=== PATIENT | female | born 1960 | race Caucasian/White ===

== ENCOUNTER 2019-03-12 09:30 | Inpatient (IN) ==
[~2019-03-12 09:30] MED LIST: ACETAMINOPHEN 500 MG TABLET PO ONE; CELECOXIB 200 MG CAPSULE PO ONE; Gabapentin 600 MG TABLET PO ONE; LIDOCAINE W/ SODIUM BICARB 0.5 ML SYR SUBD ONE; Nasal Sanitizer POPSWAB ampule 3 AMP (Nozin) PREOP DOSE ENOS SCH; PANTOPRAZOLE 20 MG TABLET.DR PO ONE; ceFAZolin Inj 3 GM in Sodium Chloride 0.9% 100 ML IV ONE
[2019-03-12] MEDS ORDERED: Gabapentin 600 MG TABLET PO ONE (11:55)
[2019-03-12] MEDS ORDERED: Lactated Ringers 1,000 ML PRIMARY IV ONE ×2 (11:55→18:45)
[2019-03-12] MEDS ORDERED: Clindamycin 900mg (Premix) 900 MG/50 ML BAG IV ONE ×2 (11:55)
[2019-03-12] MEDS ORDERED: PANTOPRAZOLE 20 MG TABLET.DR PO ONE (11:55)
[2019-03-12] MEDS ORDERED: CELECOXIB 200 MG CAPSULE PO ONE (11:55)
[2019-03-12] MEDS ORDERED: LIDOCAINE W/ SODIUM BICARB 0.5 ML SYR ONE (11:55)
[2019-03-12 13:13] LABS: BILIRUBIN,URINE NEGATIVE (NEG); CLARITY,URINE CLEAR (CLEAR); COLOR,URINE YELLOW (Y); GLUCOSE, URINE (UA) NEGATIVE (NEG); OCCULT BLOOD,URINE Trace-intact (NEG); PROTEIN,URINE NEGATIVE (NEG); UROBILINOGEN,URINE 0.2 EU/dL (0.2)
[2019-03-12 13:14] LABS: URINE SAMPLE TYPE CLEAN CATCH URINE
[2019-03-12] MEDS: Lactated Ringers 1,000 ML PRIMARY IV SCH ×3 (13:40→22:33)
[2019-03-12] MEDS ORDERED: BACITRACIN 50,000 UNIT VIAL IRRIG ONE ×3 (14:50→18:50)
[2019-03-12] MEDS ORDERED: Sodium Chloride 0.9% vial 30 ML ONE (14:50)
[2019-03-12] MEDS ORDERED: BUPivacaine Liposome/PF (Exparel) Inj 20ml vial INFIL ONE ×2 (14:50→15:12)
[2019-03-12] MEDS ORDERED: Sodium Chloride 0.9% vial 10 ML ONE (14:52)
[2019-03-12] MEDS ORDERED: fentaNYL Inj 100 MCG/2 ML VIAL ONE ×2 (15:11→16:54)
[2019-03-12] MEDS ORDERED: BUPivacaine Inj 0.5% PF (5mg/ml) 30ml vial ONE (15:11)
[2019-03-12] MEDS ORDERED: MIDAZOLAM HCL 2 MG/2 ML VIAL ONE ×2 (15:11→16:54)
[2019-03-12] MEDS ORDERED: PROPOFOL 10 MG/1 ML (200 MG/20 ML) VIAL IV ONE (16:54)
[2019-03-12] MEDS ORDERED: LIDOCAINE MPF 2% - 5 ML (20 MG/1 ML) ONE (16:56)
[2019-03-12] MEDS ORDERED: Ketorolac Inj 30 MG, BUPivacaine Inj 0.25% PF 150 MG SPLASH ONE ×2 (17:15)
[2019-03-12] MEDS ORDERED: TRANEXAMIC ACID 1,000 MG / 10 ML VIAL ONE ×2 (17:46→18:09)
[2019-03-12] MEDS ORDERED: fentaNYL Inj 250 MCG/5 ML VIAL ONE (18:04)
[2019-03-12] MEDS ORDERED: SUFENTANIL 50 MCG/1 ML ONE (18:23)
[2019-03-12] MEDS ORDERED: Sodium Chloride 0.9% vial 20 ML ONE (18:50)
[2019-03-12 20:24] LABS: Hematocrit [HCT] 38.5 % (37.0-47.0); Hemoglobin [HGB] 12.1 g/dL (12.0-16.0)
[2019-03-12] MEDS ORDERED: MAG HYDROX/AL HYDROX/SIMETH 30 ML SUSP PO PRN (21:12)
[2019-03-12] MEDS ORDERED: CALCIUM CARBONATE 500 MG (TUMS) CHEWABLE TABLET PO PRN (21:12)
[2019-03-12] MEDS ORDERED: LIDOCAINE HCL 2 % 10 ML JELLY URO-JECT TOPICAL PRN (21:12)
[2019-03-12] MEDS ORDERED: ONDANSETRON 4 MG/2 ML VIAL IVP PRN (21:12)
[2019-03-12] MEDS ORDERED: BISACODYL 5 MG TABLET PO PRN (21:12)
[2019-03-12] MEDS ORDERED: diphenhydrAMINE 25 MG CAPSULE PO PRN (21:12)
[2019-03-12] MEDS ORDERED: SUMAtriptan Tab 25 MG TAB PO PRN (22:17)
[2019-03-12] MEDS ORDERED: IPRATROPIUM/ALBUTEROL SULFATE 3 ML NEB NEB PRN (22:17)
[2019-03-12] MEDS: DOCUSATE 100 MG CAPSULE PO SCH (22:17)
[2019-03-12] MEDS: Pregabalin Cap 150mg capsule PO SCH (23:28)
[2019-03-12] MEDS: HYDROcodone/IBUPROFEN 7.5 MG/200 MG TABLET PO PRN (23:28)
[2019-03-12] MEDS: Linaclotide Cap 290 MCG CAPSULE PO SCH (23:28)
[2019-03-12] MEDS: Clindamycin 900mg (Premix) 900 MG/50 ML BAG IV SCH (23:28)
[2019-03-12] MEDS: Montelukast Tab 10 MG TAB PO SCH (23:29)
[2019-03-13] MEDS: Clindamycin 900mg (Premix) 900 MG/50 ML BAG IV SCH ×2 (05:07→11:48)
[2019-03-13 05:57] LABS: BLOOD UREA NITROGEN 21 mg/dL (7-22); BUN/CREATININE RATIO 23.33 (6-20); SERUM ALBUMIN 3.1 g/dL (3.5-4.8)
[2019-03-13] MEDS: HYDROcodone/IBUPROFEN 7.5 MG/200 MG TABLET PO PRN ×3 (05:58→21:13)
[2019-03-13 06:30] LABS: Hematocrit [HCT] 33.5 % (37.0-47.0); Hemoglobin [HGB] 10.7 g/dL (12.0-16.0); MEAN CORPUSCULAR HGB CONC 31.9 g/dL (33-37); MEAN CORPUSCULAR VOLUME 86.3 FL (81-99); RED BLOOD COUNT 3.88 10^6/uL (4.20-5.40)
[2019-03-13 06:31] LABS: MEAN PLATELET VOLUME 12.4 FL (7.4-12.2)
[2019-03-13] MEDS: PREGABALIN 100 MG CAPSULE PO SCH (08:40)
[2019-03-13] MEDS: OMEPRAZOLE 40 MG CAPSULE PO SCH ×2 (08:40→21:09)
[2019-03-13] MEDS: Oxybutynin ER Tab 5 MG TAB PO SCH (08:40)
[2019-03-13] MEDS: DOCUSATE 100 MG CAPSULE PO SCH ×2 (08:41→21:09)
[2019-03-13] MEDS: POTASSIUM CHLORIDE 20 MEQ TAB PO SCH (08:41)
[2019-03-13] MEDS: VENLAFAXINE XR 75 MG CAP PO SCH (08:41)
[2019-03-13] MEDS: Propranolol Tab 10 MG TAB PO SCH (08:41)
[2019-03-13] MEDS: ENOXAPARIN SODIUM 30 MG/0.3 ML SYRINGE SUBCUT SCH ×2 (08:41→21:08)
[2019-03-13] MEDS: CYCLOSPORINE EACH EYE SCH ×2 (08:42→22:46)
[2019-03-13] MEDS: METHYLNALTREXONE BROMIDE 150 MG PO SCH ×2 (08:43→22:46)
[2019-03-13] MEDS: Lactated Ringers 1,000 ML PRIMARY IV SCH ×2 (09:01→22:43)
[2019-03-13] MEDS: CYCLOBENZAPRINE 10 MG TABLET PO PRN (10:29)
[2019-03-13] MEDS: Montelukast Tab 10 MG TAB PO SCH (21:08)
[2019-03-13] MEDS: Linaclotide Cap 290 MCG CAPSULE PO SCH (21:08)
[2019-03-13] MEDS: Pregabalin Cap 150mg capsule PO SCH (21:12)
[2019-03-14] MEDS: HYDROcodone/IBUPROFEN 7.5 MG/200 MG TABLET PO PRN ×4 (02:53→17:54)
[2019-03-14] MEDS: CYCLOBENZAPRINE 10 MG TABLET PO PRN (02:54)
[2019-03-14 05:27] LABS: Hematocrit [HCT] 33.3 % (37.0-47.0); Hemoglobin [HGB] 10.6 g/dL (12.0-16.0); MEAN CORPUSCULAR HGB CONC 31.8 g/dL (33-37); MEAN PLATELET VOLUME 12.6 FL (7.4-12.2); RED BLOOD COUNT 3.87 10^6/uL (4.20-5.40)
[2019-03-14 05:45] LABS: BLOOD UREA NITROGEN 18 mg/dL (7-22)
[2019-03-14] MEDS: Oxybutynin ER Tab 5 MG TAB PO SCH (08:53)
[2019-03-14] MEDS: POTASSIUM CHLORIDE 20 MEQ TAB PO SCH (08:54)
[2019-03-14] MEDS: PREGABALIN 100 MG CAPSULE PO SCH (08:54)
[2019-03-14] MEDS: VENLAFAXINE XR 75 MG CAP PO SCH (08:54)
[2019-03-14] MEDS: Propranolol Tab 10 MG TAB PO SCH (08:54)
[2019-03-14] MEDS: DOCUSATE 100 MG CAPSULE PO SCH (08:58)
[2019-03-14] MEDS: ENOXAPARIN SODIUM 30 MG/0.3 ML SYRINGE SUBCUT SCH (08:58)
[2019-03-14] MEDS: OMEPRAZOLE 40 MG CAPSULE PO SCH (08:58)
[2019-03-14] MEDS: METHYLNALTREXONE BROMIDE 150 MG PO SCH (09:04)
[2019-03-14] MEDS: CYCLOSPORINE EACH EYE SCH (09:04)
[2019-03-14] MEDS ORDERED: predniSONE Tab 20 MG TAB PO SCH (10:15)
[2019-03-14] MEDS ORDERED: TIOTROPIUM BROMIDE 18 MCG CAPSULE INH SCH (10:15)
[2019-03-14] MEDS ORDERED: AZITHROMYCIN 250 MG TABLET PO SCH (10:15)
[2019-03-14] MEDS: FLUTICASONE/SALMETEROL 250/50 UD INHALER INH SCH ×2 (10:56→18:38)
[2019-03-14 11:19] LABS: VENOUS PH 7.34 (7.32-7.42)
[2019-03-14 17:42] VITALS: BP 129/74; RESP 12; TEMP 98.1; O2SAT 95
== END 2019-03-14 19:10 | disposition home or self-care (01) | DRG 470 ==
LOC: OPS 12:28 → MED/SURG 20:03
PROVIDERS: ADMIT Orthopaedic Surgery; ATTEND Orthopaedic Surgery